=== PATIENT | female | born 1970 | race Caucasian/White ===

== ENCOUNTER 2023-08-26 07:20 | Day surgery (SDC) | payer BC ==
[~2023-08-26 07:20] MED LIST: HYDROmorphone 0.5 MG/0.5 ML Syringe IVPUSH PRN; Lactated Ringers 1,000 ML IV SCH; Morphine 8 MG, EPINEPHrine 0.3 MG, Cefuroxime 750 MG, Ketorolac 30 MG, Sodium Chloride ... PRN; Ondansetron 4 MG/2 ML SDV IVPUSH PRN; Sodium Chloride 0.9% 10 ML Syringe FLUSH PRN; Sodium Chloride 0.9% 10 ML Syringe FLUSH SCH; fentaNYL 100 MCG/2 ML SDV IVPUSH PRN
[2023-08-26] MEDS ORDERED: Midazolam 1 MG/ML 2 ML SDV ONE ×2 (07:25→08:58)
[2023-08-26] MEDS ORDERED: fentaNYL 100 MCG/2 ML SDV ONE (07:27)
[2023-08-26] MEDS ORDERED: ceFAZolin 2 GM Vial ONE (07:27)
[2023-08-26] MEDS ORDERED: Propofol 200 MG/20 ML SDV ONE ×4 (07:27→09:48)
[2023-08-26] MEDS ORDERED: Lidocaine 1% 2 ML ONE (07:28)
[2023-08-26] MEDS ORDERED: Tranexamic Acid 1,000 MG/10 ML Vial ONE (07:34)
[2023-08-26] MEDS ORDERED: Vancomycin 1 GM SDV ONE (07:34)
[2023-08-26] MEDS ORDERED: Ropivacaine 0.5% 5 MG/ML 30 ML SDV ONE (07:35)
[2023-08-26 07:49] LABS: PROTHROMBIN TIME 9.8 SECONDS (9.7-12.0)
[2023-08-26 07:51] LABS: PTT,PARTIAL THROMBOPLSTIN TIME 27.9 SECONDS (21.7-31.4)
[2023-08-26 07:53] LABS: INR < 0.93
[2023-08-26] MEDS ORDERED: ePHEDrine 50 MG/ML SDV ONE (08:49)
[2023-08-26] MEDS ORDERED: Lactated Ringers 1,000 ML ONE (09:12)
[2023-08-26] MEDS ORDERED: EPINEPHrine 1 MG/ML SDV ONE (09:37)
[2023-08-26] MEDS ORDERED: oxyCODONE 5 MG Tab PO PRN (10:40)
[2023-08-26 12:46] VITALS: BP 148/94; PULSE 55
== END 2023-08-26 13:23 | disposition home or self-care (01) ==
LOC: JD.SDS 07:20
PROVIDERS: ATTEND Orthopaedic Surgery
DX: M17.11 Unilateral primary osteoarthritis, right knee (principal); I10 Essential (primary) hypertension; R73.03 Prediabetes; E66.9 Obesity, unspecified; Z68.33 Body mass index [BMI] 33.0-33.9, adult; Z98.890 Other specified postprocedural states; Z79.899 Other long term (current) drug therapy
CPT/HCPCS: 0055T; 27447; 36415; 73560; 85610; 85730; 97161; C1713; C1776; J0171; J0690; J0697; J1885; J2250; J2270; J2704; J2795; J3010; J3370; J7030; J7120; 01402; J3490